=== PATIENT | female | born 1985 | race Caucasian/White ===

== ENCOUNTER 2017-07-19 15:49 | Inpatient (IN) | payer OTHER ==
[~2017-07-19] VITALS: Ht 170.2 cm; Wt 100.9 kg
[~2017-07-19 15:49] MED LIST: MOTRIN 600600 MG/TAB PO; NORCO 325 MG-51 TAB PO; PRENATAL1 TA1 PO; SLOW FE45 MG PO
[2017-09-17] VITALS (17 sets, daily range): BP systolic 95–126; BP diastolic 34–82; PULSE 53–91; TEMP 98.7
[2017-09-17 09:45] LABS: BASO % 0.4 % (0.0-2.0); EOS % 0.4 % (0-4.0); GRAN # 5.1 (1.4-6.5); GRAN % 62.7 % (42.2-75.2); HEMOGLOBIN 11.1 g/dl (12.5-16.0); LYMPH # 2.3 (1.2-3.4); LYMPH % 28.4 % (20.0-51.0); MEAN CELL VOLUME 89 fl (80.0-100.0); MEAN CORPUSCULAR HEMOGLOBIN 29 pg (27.0-31.0); MEAN CORPUSCULAR HGB CONC 33 g/dl (33.0-37.0); MONO # 0.6 (0.1-0.6); MONO % 7.6 % (1.7-9.3); PLATELET COUNT 232 K/mm3 (130-400); RED BLOOD COUNT 3.82 M/mm3 (4.10-5.30); REDCELL DISTRIBUTION WIDTH-CV 13.1 % (11.5-14.5)
[2017-09-17] MEDS ORDERED: MOTRIN 800800 MG/TAB PO (09:52)
[2017-09-17] MEDS ORDERED: NORCO 325 MG-51 TAB PO (09:52)
[2017-09-18 02:00] VITALS: BP 100/64; PULSE 70; TEMP 98.4
[2017-09-18 07:34] LABS: HEMATOCRIT 29.6 % (37.0-47.0); HEMOGLOBIN 9.5 g/dl (12.5-16.0)
[2017-09-18 09:10] VITALS: BP 110/72; PULSE 82; TEMP 98.4
[2017-09-18 20:45] VITALS: BP 111/67; PULSE 78; TEMP 98.2
[2017-09-19 08:30] VITALS: BP 100/70; PULSE 82; TEMP 98.7
[2017-09-19 21:20] VITALS: BP 114/70; PULSE 70; TEMP 98.2
[2017-09-20 08:04] VITALS: BP 117/68; PULSE 66; TEMP 98.3
== END 2017-09-20 10:30 | disposition home or self-care (01) | DRG 765 ==
LOC: OB 09-17 08:56 → LDR 09-17 15:48 → OB 09-20 10:30
PROVIDERS: Obstetrics & Gynecology
PROC: 10D00Z1 Extraction of Products of Conception, Low, Open Approach (ICD-10-PCS; principal; 2017-09-17)
DX: O34.211 Maternal care for low transverse scar from previous cesarean delivery (principal); D62 Acute posthemorrhagic anemia; Z3A.39 39 weeks gestation of pregnancy; Z37.0 Single live birth; J45.909 Unspecified asthma, uncomplicated; O90.81 Anemia of the puerperium
CPT/HCPCS: J1885; J2405; J2590; J3010; J7120

== ENCOUNTER → 2017-09-29 | Outpatient (CLI) | payer OTHER ==
[~2017-09-29] MED LIST changes: +MOTRIN 800800 MG/TAB PO
== END ==
LOC: LAC 11:55
DX: Z39.1 Encounter for care and examination of lactating mother (principal); Z71.89 Other specified counseling